=== PATIENT | female | born 1955 | race Caucasian/White ===

== ENCOUNTER 2019-06-15 15:21 | Emergency (ER) | payer OTHER ==
[2019-06-15 15:28] VITALS: TEMP 97.8; BMI 24.7
--- NOTE | 2019-06-15 15:28 | PDOC ---
Attending Attestation - Resident Resident Name: Joel Oneill - ED Attending Attestation I have performed the following: I have examined & evaluated the patient, The case was reviewed & discussed with the resident, I agree w/resident's findings & plan, Exceptions are as noted - HPI HPI: 06/15/19 17:22 Numbness of the right cheek since mid day. Described as similar to the feeling after Novocain administration by the dentist. No involvement of the forehead or the chin. No visual or other focal neurologic symptoms. No ear pain, hearing loss, tinnitus, vertigo. Only medical problems are elevated cholesterol and hypothyroidism. Visiting relatives, home in [place]. - Physicial Exam PE: 06/15/19 17:23 Physical exam reveals normal vital signs. Alert oriented x3 well-developed well -nourished cheerful and cooperative in no acute distress Neurological exam is entirely normal except for mildly decreased sensation right cheek. Remainder of the cranial nerves are intact. Strength is full and symmetric. No focal sensorimotor deficits. Cerebellar function intact. Gait stable and unimpaired. PERRLA, fundi benign, EOMs full without diplopia, visual garza intact to confrontation. ENT clear No sinus tenderness. No temporal artery tenderness, or inflammation. Neck without tenderness or deformity, supple, without bruit mass or nodes Lungs clear, full breath sounds bilaterally CV S1-S2 normal without murmur rub or gallop pulses full and symmetric no JVD or edema no bruits regular rate 70/min Abdomen benign Skin clear, no rash, adequate turgor and wet mucous membranes Extremities no CCE - Medical Decision Making 06/15/19 17:26 Assessment: The likelihood of a CVA/TIA is minimal, considering the lack of other neurological signs or symptoms. It is uncertain what is responsible for her symptoms, with early Hampton's palsy or zoster being possibilities. Also unspecified neuritis/neuropathy or occult trauma with compression. Plan: Head CT negative. No bleed is identified. Dr. Diamond, neurology recruiting operations consultant, contacted by phone. The case was discussed at length, including signs, symptoms, lab and CT results. His opinion is that a central nervous system process is unlikely. However, recommended initiation of low-dose aspirin therapy, and he will see the patient tomorrow in his office , 10:30 AM, for further evaluation, and consider further evaluation with MRI. This was discussed with the patient and her , she understands and agrees. She will continue aspirin and follow-up as directed, or if further symptoms develop return to the ER immediately. Fully ambulatory and in no distress at discharge.
--- NOTE | 2019-06-15 15:51 | PDOC ---
History of Present Illness - General Chief Complaint: CVA/TIA Stated Complaint: NUMBNESS TO RIGHT CHEEK Time Seen by Provider: 06/15/19 15:28 - History of Present Illness Initial Comments: The pt is a 64F w/ a history of hypothyroidism, HTN who presents for evaluation of 2 hours right facial facial numbness/tingling. She states it started spontaneously and has persisted but has not gotten better or worse. She denies facial trauma, recent fevers/illness, sinus pressure, or congestion. She states having a similar sensation when she has sinus infections but does not feel like she has one at this time. 06/15/19 16:06 Past History - Past Medical History Allergies/Adverse Reactions: Allergies Allergy/AdvReac Type Severity Reaction Status Date / Time No Known Allergies Allergy Verified 06/15/19 15:22 Home Medications: Ambulatory Orders Atorvastatin Ca [Lipitor] 20 mg PO DAILY 06/15/19 Cholecalciferol (Vitamin D3) [Vitamin D] 2,000 unit PO DAILY 06/15/19 Levothyroxine [Synthroid -] 75 mcg PO DAILY 06/15/19 Meloxicam 15 mg PO ASDIR PRN 06/15/19 Cardiac Disorders: Yes (PVC'S, INVERTED T WAVE) COPD: No Thyroid Disease: Yes Other medical history: OSTEOPOROSIS - Psycho Social/Smoking Cessation Hx Smoking History: Never smoked Have you smoked in the past 12 months: No Information on smoking cessation initiated: No Hx Alcohol Use: (social) Review of Systems - Review of Systems Able to Perform ROS?: Yes Comments:: GENERAL/CONSTITUTIONAL: No fever or chills. No weakness HEAD, EYES, EARS, NOSE AND THROAT: No change in vision. No change in hearing. No sore throat CARDIOVASCULAR: No chest pain or shortness of breath RESPIRATORY: Denies cough, hemoptysis GASTROINTESTINAL: No nausea, vomiting, diarrhea or constipation GENITOURINARY: No dysuria, frequency, or change in urination MUSCULOSKELETAL: No joint or muscle swelling or pain. No neck or back pain SKIN: No rash NEUROLOGIC: No headache, vertigo, loss of consciousness, or change in strength ENDOCRINE: No increased thirst. No abnormal weight change HEMATOLOGIC/LYMPHATIC: No anemia, easy bleeding, or history of blood clots ALLERGIC/IMMUNOLOGIC: No hives or skin allergy 06/15/19 15:51 Is the patient limited Tamazight proficient: No *Physical Exam - Vital Signs Last Vital Signs Temp Pulse Resp BP Pulse Ox 97.8 F 68 18 162/88 99 06/15/19 15:21 06/15/19 15:21 06/15/19 15:21 06/15/19 15:21 06/15/19 15:21 - Physical Exam Comments: GENERAL: Awake, alert, and oriented to person/place/time, in no acute distress HEAD: No signs of trauma, normocephalic, atraumatic EYES: PERRLA, EOMI, sclera anicteric, conjunctiva clear ENT: Hearing grossly normal, nares patent, oropharynx clear without exudates. No uvular deviation. Moist mucosa LUNGS: No distress, speaks in full sentences, clear to auscultation bilaterally HEART: Regular rate and rhythm, normal S1 and S2, no murmurs appreciated, peripheral pulses normal and equal bilaterally ABDOMEN: Soft, nontender, normoactive bowel sounds. No guarding, no rebound EXTREMITIES: Normal inspection, Normal range of motion, no edema. No clubbing or cyanosis NEUROLOGICAL: Decreased sensation to light touch over maxillary sinus; otherwise CN grossly intact. Normal speech, normal gait, no focal motor deficits SKIN: Warm, Dry 06/15/19 15:51 ED Treatment Course - LABORATORY CBC & Chemistry Diagram: 06/15/19 15:30 06/15/19 15:30 - RADIOLOGY Radiology Studies Ordered: Category Date Time Status HEAD CT WITHOUT CONTRAST [CT] Stat CT Scan 06/15/19 15:44 Ordered Radiograph Interpretation: CT/HEAD CT WITHOUT CONTRAST No intraparenchymal hemorrhage is seen. There is no CT evidence of acute subarachnoid hemorrhage. Correlate clinically. No extra-axial fluid collection is noted. There is no obvious mass lesion on noncontrast imaging. No discrete infarct is identified within the limitations of CT. The ventricles and cisterns appear unremarkable. No calvarial defect is seen. The partially imaged paranasal sinuses demonstrate no opacification. Impression: No CT evidence of acute intracranial pathology. 06/15/19 17:30 Medical Decision Making - Medical Decision Making The pt is a 64F w/ a history of hypothyroidism, HTN who presents for evaluation of 2 hours right facial facial numbness/tingling. ED Course Labs sent CT head ECG 06/15/19 16:10 ECG w/ NSR; regular rate, TWI in III (known) CT head w/o acute pathology Labs unremarkable Case discussed with Dr. Farr, pt will f/u tomorrow in clinic, will give ASA 81mg PO once Plan for D/C w/ Neuro Discharge instructions and return precautions given Patient in agreement and verbalized understanding Dispo: Home 06/15/19 17:24 Discharge - Discharge Information Problems reviewed: Yes Clinical Impression/Diagnosis: Numbness and tingling of right face Condition: Stable Disposition: HOME - Admission No - Follow up/Referral Referrals: Belen Farr MD [Staff Physician] - - Patient Discharge Instructions Patient Printed Discharge Instructions: DI for Numbness/tingling Additional Instructions: You were seen in the Emergency Department for evaluation of right facial numbness/tingling. Your imaging and labs were unremarkable. Follow up with Dr. Farr tomorrow. Review the handout provided at discharge. Return to the Emergency Department if you develop worsening numbness, facial droop, extremity weakness or sensation changes, fevers, chest pain, trouble breathing, worsening pain, change in sensation, worsening symptoms, or any new/ concerning symptoms. - Post Discharge Activity
[2019-06-15 16:07] LABS: BASO % 0.8 % (0-2.0); HEMATOCRIT 44.3 % (32.4-45.2); HEMOGLOBIN 15.3 GM/dl (10.7-15.3); LYMPH % 26.6 % (8-40); MCH 31.5 pg (25.7-33.7); MCHC 34.4 g/dl (32.0-36.0); MEAN CELL VOLUME 91.5 fl (80-96); MEAN PLT VOLUME 8.8 fl (7.5-11.1); MONO % 6.7 % (3.8-10.2); NEUT % 63.9 % (42.8-82.8); PLATELET COUNT 343 K/MM3 (134-434); RBC 4.85 M/mm3 (3.60-5.2); RDW 12.1 % (11.6-15.6); WHITE BLOOD COUNT 7.9 K/mm3 (4.0-10.8)
[2019-06-15 16:14] LABS: ALBUMIN 4.3 g/dl (3.4-5.0); BILIRUBIN,TOTAL 0.5 mg/dl (0.2-1); CALCIUM 9.3 mg/dl (8.5-10); CREATININE 0.7 mg/dl (0.55-1.3); TOT PROT 7.3 g/dl (6.4-8.2)
[2019-06-15 16:16] LABS: INR 0.96 (0.82-1.09); PROTHROMBIN TIME (PATIENT) 10.8 SEC (10.2-13.0)
[2019-06-15] MEDS ORDERED: ASPIRIN 81 MG CHEWABLE TABLETS ONE (17:27)
[2019-06-15] MEDS ORDERED: ASPIRIN COATED 81 MG TABLET.EC PO ONE (17:27)
[2019-06-15 17:34] VITALS: BP 140/70; PULSE 63
--- NOTE | 2019-06-16 13:19 | EKG ---
Test Reason : Blood Pressure : / mmHG Vent. Rate : 066 BPM Atrial Rate : 066 BPM P-R Int : 154 ms QRS Dur : 084 ms QT Int : 414 ms P-R-T Axes : 040 059 011 degrees QTc Int : 434 ms NORMAL SINUS RHYTHM NONSPECIFIC ST AND T WAVE ABNORMALITY ABNORMAL ECG NO PREVIOUS ECGS AVAILABLE Confirmed by MADDIE ONTIVEROS MD ([id number]) on 06/16/2019 1:19:40 PM Referred By: DR JONES Confirmed By:MADDIE ONTIVEROS MD
== END 2019-06-15 17:45 | disposition home or self-care (01) ==
LOC: FER 15:21
DX: R20.0 Anesthesia of skin (principal); R20.2 Paresthesia of skin; I10 Essential (primary) hypertension; E03.9 Hypothyroidism, unspecified; M81.0 Age-related osteoporosis without current pathological fracture
CPT/HCPCS: 36415; 70450-TC; 80053; 85025; 85610; 85730; 93005; 99284-25